=== PATIENT | male | born 1950 | race Caucasian/White ===

== ENCOUNTER → 2024-04-08 06:19 | Day surgery (SDC) | payer MEDICARE, OTHER, SELFPAY | LOC: GI 06:19 | PROVIDERS: ATTENDING PHYSICIAN Specialist | DX: Z12.11 Encounter for screening for malignant neoplasm of colon (principal); Z86.010 Personal history of colon polyps; K57.30 Diverticulosis of large intestine without perforation or abscess without bleeding; K63.5 Polyp of colon | CPT/HCPCS: 45380; 88305 ==